=== PATIENT | female | born 1945 | race American Indian/Alaskan Native ===

== ENCOUNTER 2022-05-10 07:14 | Day surgery (SDC) | payer MEDICARE ==
--- NOTE | 2022-05-09 12:50 | HP ---
DATE OF SURGERY: 05/10/2022 HISTORY OF PRESENT ILLNESS: The patient is a 77-year-old female presents with complaints of change in bowel habit. She had some diarrhea and some nausea. She has been taking some Pepto-Bismol that helps. It looks like she had a GI bleed about five years ago. She was in [place] when that happened. Ever since then she has been having some loose stools. Last colonoscopy was about ten years ago. PAST MEDICAL HISTORY: Glaucoma. Gastroesophageal reflux disease. Migraine. Cervical cancer. Arthritis. Two head concussions. PAST SURGICAL HISTORY: Eye surgery. Cholecystectomy. Hysterectomy. ALLERGIES: PENICILLIN. SULFA. MEDICATIONS: Tylenol, vitamin C, Mucinex, calcium, glucosamine, estradiol, Excedrin, Rhopressa. FAMILY HISTORY: Diabetes, hypertension, ovarian cancer, stroke, atrial fibrillation. SOCIAL HISTORY: None. REVIEW OF SYSTEMS: CONSTITUTIONAL: Denies fever or chills. CHEST: Denies shortness of breath. CVS: Denies chest pain. ABDOMEN: Denies abdominal pain. PHYSICAL EXAMINATION: GENERAL: No acute distress. CHEST: Nonlabored. No shortness of breath. CVS: Regular rate and rhythm. ABDOMEN: Soft. IMPRESSION: Change in bowel habits, diarrhea. PLAN: Colonoscopy with Dr. Flaco Montes. As dictated by Ashley Mcmullen NP.
[2022-05-10] MEDS ORDERED: Zofran 4 MG/2 ML VIAL IV STA (07:37)
[2022-05-10] MEDS ORDERED: Zofran 4 MG/2 ML VIAL ONE (07:42)
[2022-05-10] MEDS ORDERED: Lactated Ringers 1,000 ML IV ONE (07:43)
[2022-05-10] MEDS ORDERED: Lactated Ringers 1,000 ML IV SCH (08:00)
[2022-05-10] MEDS ORDERED: Transderm Scop 1.5MG Patch TOP PRN (08:13)
[2022-05-10] MEDS ORDERED: DIPRIVAN 200 MG/20 ML IV ONE (10:19)
[2022-05-10] MEDS ORDERED: Xylocaine-Mpf 2% 5 Ml Vial ONE (10:19)
[2022-05-10 11:05] VITALS: PULSE 71
[2022-05-10 11:26] VITALS: BP 141/68; O2SAT 98
--- NOTE | 2022-05-10 13:34 | OP ---
SURGERY DATE/TIME: 05/10/2022 1023 PREOPERATIVE DIAGNOSIS: Change in bowel habits, diarrhea and nausea. POSTOPERATIVE DIAGNOSIS: One polyp ascending colon 3 mm mid transverse colon. PROCEDURE: Colonoscopy complete to cecum. SURGEON: Flaco Montes M.D. ANESTHESIA: MAC. COMPLICATIONS: None. CONDITION: Stable. DESCRIPTION OF PROCEDURE: Patient taken to endoscopy. Anal digital examination satisfactory. There was some spasm. Gluconate added. The scope advanced to the cecum. Base of the cecum, ileocecal valve, appendiceal orifice normal. Ascending, hepatic, mid transverse 3 mm polyp taken with cold biopsy forceps. Splenic, descending, sigmoid, rectum, anus. The prep was excellent. Withdrawal time six minutes. One polyp was taken. There was minimal changes in the colon for this age colon. There was a little bit of spasm, little bit of redundancy, really not much happening in the colon. Follow up five years.
== END 2022-05-10 11:33 | disposition home or self-care (01) ==
LOC: SDC 07:14
PROVIDERS: ATTEND Surgery
DX: D12.3 Benign neoplasm of transverse colon (principal); R19.4 Change in bowel habit; R19.7 Diarrhea, unspecified; R11.0 Nausea
CPT/HCPCS: 99100; J2405; J2704; A9270-GY